=== PATIENT | female | born 1945 | race Caucasian/White ===

== ENCOUNTER 2016-10-27 05:38 | Inpatient (IN) | payer OTHER ==
[~2016-10-27] VITALS: Ht 152.4 cm; Wt 69.4 kg
[~2016-10-27 05:38] MED LIST: ACID CONTROL150 MG PO; BENADRYL25 MG PO; CLARITIN10 M3 PO; FLEXERIL5 MG PO; HYDROCHLOROTHIA25 MG PO; VITAMIN D400 UNI1 PO
[2016-10-27 06:04] VITALS: BP 158/76
[2016-10-27 10:04] LABS: HEMATOCRIT 36.1 % (36.0-46.0); MCH 30.4 PG (29.0-34.0); MCHC 33.2 G/DL (30.0-36.0); MCV 91.4 FL (83-99); MEAN PLAT.VOLUME 11.4 uM^3 (9.5-12.4); PLATELET COUNT 155 K/uL (156-360); RBC DIS.WIDTH-CV 12.4 % (11.8-14.6); RBC DIS.WIDTH-SD 41.7 % (39-53); RED BLOOD COUNT 3.95 M/uL (3.80-5.20); WHITE BLOOD COUNT 8.1 K/uL (4.1-10.2)
[2016-10-27 10:31] VITALS: BP 143/70
[2016-10-27 13:33] VITALS: BP 165/76
[2016-10-27 17:26] VITALS: BP 157/67
[2016-10-27 20:00] VITALS: BP 101/59; BP 146/69
[2016-10-28] VITALS (7 sets, daily range): BP systolic 115–137; BP diastolic 59–85
[2016-10-28 06:46] LABS: HEMATOCRIT 35.5 % (36.0-46.0); MCV 90.3 FL (83-99)
[2016-10-28 07:15] LABS: ANION GAP 6 MEQ/L (2-14); CHLORIDE 96 MEQ/L (99-109); GFR ESTIMATE (CALCULATED) > 59 mL/min/; GLUCOSE 139 mg/dL (70-99); POTASSIUM 3.3 MEQ/L (3.7-5.4); SAMPLE HEMOLYSIS CHECK 0; SAMPLE ICTERIC CHECK 0; SAMPLE LIPEMIA CHECK 0; SODIUM 130 MEQ/L (136-147); UREA NITROGEN (BUN) 9 mg/dL (9-23)
[2016-10-28 17:32] LABS: ALKALINE PHOSPHATASE 55 IU/L (3-129); ANION GAP 6 MEQ/L (2-14); CHLORIDE 96 MEQ/L (99-109); GFR ESTIMATE (CALCULATED) 47 mL/min/; GLUCOSE 138 mg/dL (70-99); POTASSIUM 3.6 MEQ/L (3.7-5.4); SAMPLE HEMOLYSIS CHECK 0; SAMPLE ICTERIC CHECK 0; SAMPLE LIPEMIA CHECK 0; SODIUM 131 MEQ/L (136-147); TOTAL BILIRUBIN 2.2 MG/DL (0.0-1.0); UREA NITROGEN (BUN) 13 mg/dL (9-23)
[2016-10-29 04:27] VITALS: BP 139/65
[2016-10-29 05:32] LABS: HEMATOCRIT 33.9 % (36.0-46.0); MCV 91.4 FL (83-99)
[2016-10-29 05:58] LABS: ALKALINE PHOSPHATASE 56 IU/L (3-129); ANION GAP 6 MEQ/L (2-14); CHLORIDE 103 MEQ/L (99-109); GFR ESTIMATE (CALCULATED) 58 mL/min/; GLUCOSE 111 mg/dL (70-99); POTASSIUM 4.2 MEQ/L (3.7-5.4); SAMPLE HEMOLYSIS CHECK 0; SAMPLE ICTERIC CHECK 0; SAMPLE LIPEMIA CHECK 0; UREA NITROGEN (BUN) 14 mg/dL (9-23)
[2016-10-29 06:03] LABS: SODIUM 138 MEQ/L (136-147); TOTAL BILIRUBIN 1.7 MG/DL (0.0-1.0)
[2016-10-29 08:17] VITALS: BP 150/70
[2016-10-29] MEDS ORDERED: CELECOXIB200 MG PO (09:46)
[2016-10-29] MEDS ORDERED: SENNA PLUS TAB1 EACH PO (09:46)
[2016-10-29] MEDS ORDERED: HYDROCODON-ACE1 EAC7 PO (09:46)
[2016-10-29] MEDS ORDERED: LOVENOX40 MG/0.4 SC (09:46)
[2016-10-29 12:00] VITALS: BP 108/54
== END 2016-10-29 14:45 | DRG 470 ==
LOC: 2SOUTH 05:38 → 3WEST 10:16 → 2SOUTH 10:32 → 3WEST 10-29 14:45
PROVIDERS: Nurse Practitioner Family; Orthopaedic Surgery
PROC: 0SRC0J9 Replacement of Right Knee Joint with Synthetic Substitute, Cemented, Open Approach (ICD-10-PCS; principal; 2016-10-27)
DX: M17.11 Unilateral primary osteoarthritis, right knee (principal); I10 Essential (primary) hypertension; R73.03 Prediabetes; K21.9 Gastro-esophageal reflux disease without esophagitis; E78.2 Mixed hyperlipidemia; E55.9 Vitamin D deficiency, unspecified; J30.2 Other seasonal allergic rhinitis; E66.3 Overweight; Z68.29 Body mass index [BMI] 29.0-29.9, adult
CPT/HCPCS: 73560; 80048; 80053; 85014; 85018; 85027; J0690; J1170; J1200; J1650; J2405; J3010; J7050